=== PATIENT | female | born 1970 | race Caucasian/White ===

== ENCOUNTER → 2023-09-08 | Outpatient (CLI) | payer OTHER ==
[2023-09-08 16:01] VITALS: BP 123/79; PULSE 77; RESP 16; TEMP 97.5
--- NOTE | 2023-09-08 16:17 | P.SLEEP ---
History of Present Illness DATE: 09/08/2023 CONSULTATION/NEW PATIENT EVALUATION HISTORY OF PRESENT ILLNESS/SLEEP-WAKE EVALUATION: 53-year-old lady had been ev aluated in the sleep center for possible obstructive sleep apnea hypopnea syndrome. Home sleep apnea test about 1 year ago in another institution was not successful. SLEEP SCHEDULE: Usually sleep schedule from 580247:30 AM until 6307:30 AM 7 days a week. FALLING ASLEEP: Sometimes patient has difficulties with falling asleep, has TV set in bedroom. DURING SLEEP: Patient usually sleeps on the back position with loud snoring and awakenings from sleep up to 3 times with 1 episode of nocturia. Positive history of grinding teeth and TMJ problems no history of hypnogogical hallucinations, sleep paralysis, or cataplexy. DURING THE DAY/WAKE STATE: In the morning patient wake up tired, has problems with memory. [place] sleepiness scale is 3. Patient does not take naps. PAST MEDICAL HISTORY: TMJ problems, ADD, nasal septum deviation, hypothyroidism. PAST SURGICAL HISTORY: Right hip replacement, back surgery. MEDICATIONS: Levothyroxine 125 mcg once a day, Adderall 20 mg extended release once a day, progesterone 150 mg, gabapentin as needed. SOCIAL HISTORY: Please see below. FAMILY HISTORY: Hypertension, stroke, cancer, liver problems. REVIEW OF SYSTEMS: Snoring, multiple awakenings from sleep. No fevers. No double vision. No recent chest pain. No shortness of breath. No abdominal pain. No bleeding episodes. No blood in urine. No seizure episodes. PHYSICAL EXAMINATION: GENERAL: A pleasant patient without any distress. VITAL SIGNS: Please see below. HEENT: PERRLA, EOMI. Evaluation of oropharynx showed tongue protrudes midline, low position of soft palate Mallampati 4. NECK: Supple. No JVD. Thyroid is not palpable. 14 inches in circumference. LUNGS: Clear to percussion and to auscultation. Good air exchange. No wheezing or rhonchi. HEART: S1, S2 regular. No murmurs, gallops or rubs. ABDOMEN: Soft and nontender. Bowel sounds are present. No organomegaly appreciated. EXTREMITIES: No clubbing or cyanosis. PROCESS SAFETY SPECIALIST: Awake, alert, and oriented x3. Cranial nerves 2 to 7 intact. There is no fasciculation or atrophy noted. No focal deficits observed. ASSESSMENT: 1. Loud snoring, multiple awakenings from sleep, extremely low position of soft palate Mallampati 4. Obstructive sleep apnea hypopnea syndrome. 2. History of difficulties to initiate sleep, psychophysiological insomnia. 3. History of ADD. 4. TMJ problems, using oral appliances. 5 status post right hip replacement. 6 . Status post back surgery. 7. Nasal septum deviation. PLAN: 1. Polysomnography for evaluation of patient's breathing during sleep. 2. Following plan after reading sleep study. 3. Preferable position during sleep on the side. 4. No driving if patient feels any sleepiness. Patient is aware of civil and criminal liability for unsafe driving. 5. Sleep hygiene with regular sleep time for at least 7.5-8 hours. Thank you very much for referring this patient for consultation. Sincerely, Jacques Hernandez MD, PhD, FAASM. Diplomat of [employer], Sleep Medicine Board by [employer] Machine Operator [facility] [place] Past Medical History Past Medical History: Thyroid Disorder Additional Past Medical History / Comment(s): ADD, Neck/back pain, Hormone Replacement Therapy History of Any Multi-Drug Resistant Organisms: None Reported Past Surgical History: Back Surgery, Orthopedic Surgery Additional Past Surgical History / Comment(s): r hip replacement Past Psychological History: ADD/ADHD Smoking Status: Former smoker Past Alcohol Use History: Occasional Past Drug Use History: None Reported - Past Family History Father Family Medical History: Cancer, CVA/TIA, Hypertension Additional Family Medical History / Comment(s): Mom had liver problems. Medications and Allergies Home Medications Medication Instructions Recorded Confirmed Type Dextroamphetamine/Amphetamine 20 mg PO DAILY 09/08/23 09/08/23 History [Adderall Xr 20 mg Capsule] Estradiol Cream [Estrace Cream 1 gm VAGINAL DIRECTED 09/08/23 09/08/23 History 0.01%] Gabapentin [Neurontin] 100 mg PO BID PRN 09/08/23 09/08/23 History Levothyroxine Sodium [Levoxyl] 125 mcg PO DAILY 09/08/23 09/08/23 History Physical Exam Vitals: Vital Signs Temp Pulse Resp BP Pulse Ox 09/08/23 15:36 97.5 F L 77 16 123/79 99 Intake and Output 09/08/23 09/08/23 09/08/23 06:59 14:59 22:59 Other: Weight 84.822 kg Sleep Note - Sleep Data ESS Total: 3 - Sleep Note Sleep Note: Temperature: 97.5 F Pulse Rate: 77 Respiratory Rate: 16 Blood Pressure: 123/79 SpO2: 99 Height: 5 ft 11 in Weight: 84.822 kg BMI: Neck Circumference:
== END ==
LOC: 3 N SLEEP 14:37
PROVIDERS: ATTEND Internal Medicine
DX: G47.33 Obstructive sleep apnea (adult) (pediatric) (principal); F90.9 Attention-deficit hyperactivity disorder, unspecified type; M26.609 Unspecified temporomandibular joint disorder, unspecified side; J34.2 Deviated nasal septum; F51.04 Psychophysiologic insomnia; Z96.641 Presence of right artificial hip joint; Z98.890 Other specified postprocedural states; Z87.891 Personal history of nicotine dependence; Z79.899 Other long term (current) drug therapy
CPT/HCPCS: 99202

== ENCOUNTER 2023-10-12 19:45 | Outpatient (CLI) | payer OTHER ==
--- NOTE | 2023-10-13 13:42 | P.PCN ---
Description of Procedure: POLYSOMNOGRAPHY REPORT PROCEDURE(S)/DATE(S): Polysomnography 10/12/2023 CLINICAL: Patient has been seen in the sleep center for evaluation of obstructive sleep apnea-hypopnea syndrome. Please see my consultation. Sleep study has been done for evaluation of patient breathing during the sleep. PROCEDURE: The standard montage for clinical polysomnography included the electroencephalogram, the electrooculogram, the mentalis surface electromyography and Lead II cardiography. The respiratory battery consisted of measurements of nasal/buccal air flow, pressure transducer measurements from nose, thoracic and/or abdominal effort and intercostal surface electromyography. Video monitoring has been done to check for any parasomnia events. Nocturnal oxyhemoglobin saturations were obtained by finger oximetry. Step-wallis titration with positive airway pressure was utilized to control the respiratory events, if necessary. RESULTS: During the diagnostic sleep study sleep efficiency was decreased to 75.8%. Latency to sleep onset was prolonged to 49.0 min. Sleep architecture showed stage NI was normal 8.6%, Delta sleep was absent 0%, REM sleep was short 15.4%. Respiratory channel showed 0 obstructive apneas, 0 mixed apneas, 0 central apneas, 203 hypopneas with lowest oxygen level 73%. Total apnea hypopnea index was 40.4. Heart rate was in the range between 63 and 73, average 68. EMG showed 0 periodic limb movements per hour with 0 micro-arousals per hour. IMPRESSIONS: 1. Severe obstructive sleep apnea hypopnea syndrome. 2. No significant periodic limb movements have been documented. Please see other impressions from consultation PLAN: 1. The patient will have PAP titration for correction of respiratory abnormalities during the sleep. 2. Sleep hygiene with regular time in bed for at least 7-1/2 hours.. 3. No driving if feeling sleepiness. Thank you very much for allowing me to participate in the management of your patient. Sincerely, Jacques Hernandez MD, PhD, FAASM. Diplomat of [place] [employer], Sleep Medicine Board by [place] [employer] Rehab Physician of [facility] [place]
== END 2023-10-13 05:30 | disposition home or self-care (01) ==
LOC: 3 N SLEEP 19:45
PROVIDERS: ATTEND Internal Medicine
DX: G47.33 Obstructive sleep apnea (adult) (pediatric) (principal)
CPT/HCPCS: 95810